=== PATIENT | female | born 1970 | race Caucasian/White ===

== ENCOUNTER → 2018-11-23 21:28 | Outpatient (CLI) | payer OTHER | END | disposition home or self-care (01) | LOC: D.MAMMO 11:00 | DX: N63.21 Unspecified lump in the left breast, upper outer quadrant (principal); R07.9 Chest pain, unspecified ==

== ENCOUNTER → 2019-09-19 12:47 | Outpatient (CLI) | payer OTHER ==
[2019-09-19 15:06] LABS: BASOPHILS 0.2 % (0-2); EOSINOPHILS 0.6 % (0-7); HEMATOCRIT 37.9 % (36.0-48.0); HEMOGLOBIN 12.4 g/dL (12-16); IMMATURE GRANULOCYTES 0.1 % (0-5); LYMPHOCYTES 18.3 % (15-50); MCH 29.2 pg (26.0-34.0); MCHC 32.7 g/dL (31.0-37.0); MCV 89.4 fL (80.0-100.0); MEAN PLATELET VOLUME 10.6 fL (7.4-10.4); MONOCYTES 5.5 % (2-11); NEUTROPHILS 75.3 % (40-80); PLATELET COUNT 241 10x3/uL (130-400); RBC 4.24 10x6/uL (4.00-5.40); RDW 13.1 % (11.5-14.5); WBC 8.6 10x3/uL (4.8-10.8)
[2019-09-19 15:56] LABS: CHOL - HDL RATIO 3.3 ratio (2.3-4.1); LDL-HDL RATIO 2.1 ratio (1.5-3.5); T4 THYROXIN - FREE 1.12 ng/dL (0.76-1.46); THYROID STIMULATING HORMONE 2.06 uIU/mL (0.36-3.74)
[2019-09-19 16:28] LABS: ERYTHROCYTE SEDIMENTATION RATE 9 mm/hr (0-20)
== END | disposition home or self-care (01) ==
LOC: D.CT 09-14 13:30 → D.RAD 09-14 15:00 → D.CT 12:47
PROVIDERS: ATTEND Family Medicine
DX: R22.2 Localized swelling, mass and lump, trunk (principal); M54.2 Cervicalgia; M25.512 Pain in left shoulder; L65.9 Nonscarring hair loss, unspecified; E03.9 Hypothyroidism, unspecified; R68.83 Chills (without fever); M25.50 Pain in unspecified joint; Z83.3 Family history of diabetes mellitus